=== PATIENT | female | born 1965 | race Caucasian/White ===

== ENCOUNTER 2023-03-21 16:54 | Emergency (ER) | payer OTHER ==
[~2023-03-21] VITALS: Ht 162.6 cm; Wt 63.5 kg
[2023-03-21 17:27] VITALS: BP 127/81; TEMP 98.7
[2023-03-21] MEDS ORDERED: LIDOCAINE 1%-EPI 1:100,000 20 ML VIAL ONE (18:02)
[2023-03-21] MEDS ORDERED: CLIN300C12 PO (18:34)
[2023-03-21 18:53] VITALS: O2SAT 100
== END 2023-03-21 18:55 | disposition home or self-care (01) ==
LOC: ER 16:58
DX: S61.211A Laceration without foreign body of left index finger without damage to nail, initial encounter (principal); Z79.899 Other long term (current) drug therapy; Z88.0 Allergy status to penicillin; W26.0XXA Contact with knife, initial encounter; Y93.89 Activity, other specified; Y92.89 Other specified places as the place of occurrence of the external cause; Y99.8 Other external cause status
CPT/HCPCS: 12001; 99283; J3490